=== PATIENT | male | born 1985 | race American Indian/Alaskan Native ===

== ENCOUNTER 2017-02-08 20:04 | Emergency (ER) | payer SELFPAY ==
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
[2017-02-09] MEDS ORDERED: THERMAZENE 50 GRAM TP ONE ×2 (00:28→01:02)
[2017-02-09] MEDS ORDERED: MOTRIN PO ONE (00:28)
[2017-02-09] MEDS ORDERED: BOOSTRIX IM ONE (00:28)
[2017-02-09] MEDS ORDERED: BACTRIM DS PO ONE (00:28)
[2017-02-09 01:41] VITALS: BP 133/75
== END 2017-02-09 02:14 | disposition home or self-care (01) ==
LOC: ED 20:04
DX: T22.211A Burn of second degree of right forearm, initial encounter (principal); M79.601 Pain in right arm; Y92.89 Other specified places as the place of occurrence of the external cause
CPT/HCPCS: 90471; 90715